=== PATIENT | female | born 1970 | race African-American/Black ===

== ENCOUNTER → 2020-03-15 | Day surgery (SDC) | payer BC, OTHER ==
[2020-03-11 11:52] LABS: ANION GAP 14.5 mmol/L (8-16); BLOOD UREA NITROGEN < 5 mg/dL (7-26); CALCIUM 8.3 mg/dL (8.4-10.2); CARBON DIOXIDE 26 mmol/L (22-29); CHLORIDE 105 mmol/L (98-107); CREATININE, SERUM 0.67 mg/dL (0.57-1.11); EST GLOMERULAR FILTRATION RATE > 60 ML/MIN (60-); GLUCOSE 110 mg/dL (74-118); POTASSIUM 3.5 mmol/L (3.5-5.1); SODIUM 142 mmol/L (136-145)
[2020-03-11 11:55] LABS: BUN/CREATININE RATIO 7 (6-25)
[~2020-03-15] MED LIST: CARVEDILOL25 MG; CEFTRIAXONE SOD 1 GM/NS 50 ML 50 ML IV ONE; DEXAMETHASONE SOD PHOS INJ 4 MG/ML VIAL IV ONE; DULCOLAX10 MG; FERROUS SULFAT325 MG; FUROSEMIDE40 MG PO; HYDRALAZINE HCL50 MG; IOPAMIDOL 300MG/ML 50ML INFUS..BTL IV ONE; LIDOCAINE HCL 2% LOCAL INJ 5 ML SDV VIAL INJ ONE; METOCLOPRAMIDE10 MG PO; MIDAZOLAM HCL 2 MG/2 ML VIAL ONE; ONDANSETRON HCL INJ 2MG/ML 2ML 2 MG/ML VIAL IV ONE; ONDANSETRON2 MG/1 ML IV; PROPOFOL IV EMULSION 10 MG/ML 20 ML VIAL IV ONE; SEVOFLURANE INHAL SOLN 250 ML PEN BTL INH ONE; SPIRONOLACTONE1 GM; [UNRECOGNIZED DRUG - OTHER] TD
[2020-03-15 09:15] VITALS: BP 156/88
--- NOTE | 2020-04-16 14:45 | Operative Report ---
DATE OF PROCEDURE: 03/15/2020 SURGEON: Roland Munoz MD PREOPERATIVE DIAGNOSES: 1. Indwelling left ureteral stent. 2. Microscopic hematuria. 3. Indwelling right stent. POSTOPERATIVE DIAGNOSES: 1. Indwelling left ureteral stent. 2. Microscopic hematuria. 3. Indwelling right stent. PROCEDURES: 1. Cystourethroscopy with complicated removal of left indwelling stent (entirely separate procedure for left ureteral stent). 2. Cystourethroscopy with removal of a right indwelling stent (entirely separate procedure for right ureteral stent). 3. Cystourethroscopy insertion of right ureteral calculus and right retrograde pyelogram (separate procedure for diagnosis of microscopic hematuria). 4. Cystourethroscopy with catheterization of right ureteral orifice and right retrograde pyelogram (separate procedure for diagnosis of microscopic hematuria). 5. Supervision of fluoroscopy. 6. Interpretation of retrograde pyelography. ANESTHESIA: General. ESTIMATED BLOOD LOSS: Minimal. COMPLICATIONS: None. INDICATIONS: Ms. Maki is a very pleasant 49-year-old female with a history of hydronephrosis, hematuria, and bilateral ureteral stents. She and I had a long discussion of alternatives, risks, and benefits of doing nothing, stent removal, ureteroscopy, retrograde pyelograms. She voiced understanding of the options, alternatives, risks, and benefits, and elected to proceed with stent removal. PROCEDURE IN DETAIL: After informed consent was obtained, the patient was taken to the operative suite, placed supine on the operative table, underwent general anesthesia by the Anesthesia Service, and was placed in dorsal position, and sterilely prepped and draped for cystoscopy. A 21-Maldivian cystoscope was inserted per urethra. Bilateral stents seen were calcified, grasped and removed with moderate difficulty. Bilateral retrograde pyelogram was performed revealing delicate ureters, delicate pelvocaliceal systems. No evidence of filling defects. No evidence of hydronephrosis. IMPRESSION: Normal bilateral retrograde pyelograms. Roland Munoz MD ES/MODL /[id number]
== END | disposition home or self-care (01) ==
LOC: OR 05:55
PROVIDERS: ATTEND Urology
DX: Z46.6 Encounter for fitting and adjustment of urinary device (principal); N39.0 Urinary tract infection, site not specified; N13.30 Unspecified hydronephrosis; D64.9 Anemia, unspecified; I10 Essential (primary) hypertension; Z01.810 Encounter for preprocedural cardiovascular examination; Z01.812 Encounter for preprocedural laboratory examination; Z11.59 Encounter for screening for other viral diseases
CPT/HCPCS: 36415; 52005; 74420; 80048; 93005; C1758; J0696; J1100; J2001; J2250; J2405; J2704; Q9967; U0002